=== PATIENT | male | born 1950 | race African-American/Black ===

== ENCOUNTER 2022-04-03 14:15 | Inpatient (IN) | payer MEDICARE ==
[2022-04-03 15:23] LABS: Bacteria/HPF 3+ HPF (None Seen); Bilirubin 1+ (Negative); Blood, Urine 1+ (Negative); Glucose, Urine (Dipstick) Normal (Negative); Ketone, Urine Trace mg/dL (Negative); Leukocyte 500 Leu/uL (Negative); Nitrite Negative (Negative); Protein, Urine (Dipstick) 70 mg/dL (Neg-Trace); RBC/HPF 0-3 HPF (0-3); Specific Gravity, Urine 1.022 (1.002-1.036); Squamous Epithelial 0-3 HPF (0-3); WBC/HPF Greater than 50 HPF (0-3)
[2022-04-03 15:24] LABS: Clarity Turbid (Clear)
[2022-04-03 15:29] LABS: #Lymphocytes 1.4 thou/uL (1.20-3.40); #Monocytes 0.6 thou/uL (0.11-0.59); #Neutrophils 6.8 thou/uL (1.40-6.50); %Basophils 0.5 % (0.0-1.0); %Eosinophils 0.4 % (0.0-10.0); %Lymphocytes 15.7 % (21.0-51.0); %Monocytes 6.3 % (0.0-10.0); %Neutrophils 77.1 % (42.0-75.0); Hemoglobin 15.8 g/dL (14.0-18.0); Mean Corpuscular HGB CONC 30.9 g/dL (32.0-36.0); Mean Corpuscular Hemoglobin 34.3 pg (27.0-31.0); Mean Platelet Volume 12.5 fL (7.4-10.4); Platelet Count 101 thou/uL (130-400); RBC Distribution Width 12.8 % (11.5-14.5); Red Blood Cell (RBC) Count 4.61 mill/uL (4.70-6.10); White Blood Cell (WBC) Count 8.8 thou/uL (4.8-10.8)
[2022-04-03 15:34] LABS: INR-International Normal Ratio 1.8; Prothrombin Time 20.9 sec (12.0-14.7)
[2022-04-03 15:38] LABS: Hypochromia SLIGHT = 6-15 cells (100X) (0-5/hpf); Large Platelets SLIGHT; MDiff Complete? YES; Macrocytosis MODERATE=16-30 cells (100X) (0-5/hpf); Platelet Morphology Comment Appears Decreased; Polychromasia SLIGHT = 2-3 cells (100X) (0-2/hpf)
[2022-04-03] MEDS ORDERED: Aspirin 325 MG TAB ONE (15:39)
[2022-04-03] MEDS ORDERED: cefTRIAXone\\ROCEPHIN 1 GM VIAL ONE (15:39)
[2022-04-03 15:55] LABS: CKMB 3.6 ng/mL (0-6.6)
[2022-04-03] MEDS ORDERED: Aspirin 300 MG Suppository ONE (15:55)
[2022-04-03] MEDS ORDERED: Acetaminophen 650 MG Suppository PR PRN (16:31)
[2022-04-03] MEDS ORDERED: Lactated Ringer's 1,000 ML IV SCH (17:00)
[2022-04-03] MEDS ORDERED: Vancomycin 1 GM/200 ML BAG ONE (17:01)
[2022-04-03 17:35] LABS: Amphetamine Not Detected (NotDetected); Barbiturates Screen Not Detected (NotDetected); Benzodiazepine Screen Not Detected (NotDetected); Cocaine Metabolite Screen Detected (NotDetected); Methadone Not Detected (NotDetected); Methamphetamine Not Detected (NotDetected); Opiate Screen Not Detected (NotDetected); Oxycodone Screen Not Detected (NotDetected); Phencyclidine (PCP) Not Detected (NotDetected); THC/Cannabinoid Screen Not Detected (NotDetected); Tricyclic Screen Not Detected (NotDetected)
[2022-04-03 17:44] LABS: ALT (SGPT) 7 U/L (8-55); AST (SGOT) 20 U/L (5-34); Albumin 3.7 g/dL (3.4-4.8); Alkaline Phosphatase 65 U/L (40-110); Anion Gap 26 mmol/L (10-20); BUN (Urea Nitrogen) 123 mg/dL (8.4-25.7); Bilirubin, Total 0.7 mg/dL (0.2-1.2); Calc. Creatinine Clearance 0 mL/min (70-130); Calcium 8.6 mg/dL (7.8-10.44); Carbon Dioxide 13 mmol/L (23-31); Chloride 137 mmol/L (98-107); Estimated GFR 5; Globulin 3.6 g/dL (2.4-3.5); Glucose 88 mg/dL (80-115); Protein, Total 7.3 g/dL (5.8-8.1); Sodium 170 mmol/L (136-145)
[2022-04-03 18:11] LABS: Lactic Acid 2.1 mmol/L (0.5-2.2)
[2022-04-03 18:19] LABS: SARS-CoV-2 NAA Rapid Test Not Detected (NotDetected)
[2022-04-03 18:57] LABS: Anion Gap 27 mmol/L (10-20); BUN (Urea Nitrogen) 123 mg/dL (8.4-25.7); Calc. Creatinine Clearance 0 mL/min (70-130); Calcium 8.4 mg/dL (7.8-10.44); Carbon Dioxide 12 mmol/L (23-31); Chloride 135 mmol/L (98-107); Estimated GFR 5; Glucose 109 mg/dL (80-115); Potassium 5.7 mmol/L (3.5-5.1); Sodium 168 mmol/L (136-145)
[2022-04-03] MEDS: Heparin 5,000 UNITS/ML VIAL SC SCH (22:29)
[2022-04-03] MEDS: Famotidine/PF 20 mg/2ml Vial SLOW IVP SCH (22:29)
[2022-04-03] MEDS ORDERED: HOLD VANCOMYCIN FOR LEVEL >20 FS SCH (22:30)
[2022-04-03 22:31] LABS: Troponin I 0.469 ng/mL (< 0.028)
[2022-04-03 22:36] LABS: Potassium 5.6 mmol/L (3.5-5.1)
[2022-04-03 22:37] LABS: Calcium 8.4 mg/dL (7.8-10.44); Glucose 166 mg/dL (80-115)
[2022-04-03 22:39] LABS: Anion Gap 26 mmol/L (10-20); Carbon Dioxide 12 mmol/L (23-31)
[2022-04-03 22:40] LABS: Chloride 136 mmol/L (98-107); Sodium 168 mmol/L (136-145)
[2022-04-03 22:41] LABS: Calc. Creatinine Clearance 5 mL/min (70-130); Estimated GFR 4
[2022-04-03 22:42] LABS: BUN (Urea Nitrogen) 125 mg/dL (8.4-25.7)
[2022-04-03] MEDS ORDERED: Cefepime 2 GM in Sodium Chloride 0.9% 100 ML IVPB SCH (23:30)
[2022-04-04 04:06] LABS: #Lymphocytes 1.5 thou/uL (1.20-3.40); #Monocytes 0.6 thou/uL (0.11-0.59); #Neutrophils 10.2 thou/uL (1.40-6.50); %Basophils 0.3 % (0.0-1.0); %Eosinophils 0.4 % (0.0-10.0); %Lymphocytes 12.3 % (21.0-51.0); %Monocytes 5.1 % (0.0-10.0); Hemoglobin 13.9 g/dL (14.0-18.0); Mean Corpuscular HGB CONC 30.9 g/dL (32.0-36.0); Mean Corpuscular Hemoglobin 35.1 pg (27.0-31.0); Mean Platelet Volume 11.1 fL (7.4-10.4); Platelet Count 72 thou/uL (130-400); RBC Distribution Width 12.6 % (11.5-14.5); Red Blood Cell (RBC) Count 3.95 mill/uL (4.70-6.10); White Blood Cell (WBC) Count 12.5 thou/uL (4.8-10.8)
[2022-04-04 04:34] LABS: ALT (SGPT) 8 U/L (8-55); AST (SGOT) 25 U/L (5-34); Albumin 3.5 g/dL (3.4-4.8); Alkaline Phosphatase 58 U/L (40-110); Anion Gap 23 mmol/L (10-20); BUN (Urea Nitrogen) 118 mg/dL (8.4-25.7); Bilirubin, Total 0.7 mg/dL (0.2-1.2); Calc. Creatinine Clearance 5 mL/min (70-130); Calcium 8.5 mg/dL (7.8-10.44); Carbon Dioxide 12 mmol/L (23-31); Chloride 134 mmol/L (98-107); Estimated GFR 5; Globulin 3.3 g/dL (2.4-3.5); Glucose 171 mg/dL (80-115); Potassium 4.4 mmol/L (3.5-5.1); Protein, Total 6.8 g/dL (5.8-8.1); Sodium 165 mmol/L (136-145)
[2022-04-04] MEDS: Dextrose 5% in Water 1,000 ML IV SCH ×4 (06:23→09:00)
[2022-04-04 07:31] LABS: Vancomycin, Random 9.2 ug/mL (See Comment)
[2022-04-04] MEDS ORDERED: Vancomycin HCl 750 MG in Sodium Chloride 0.9% 250 ML 250 ML IVPB SCH (08:00)
[2022-04-04] MEDS ORDERED: Enoxaparin Sodium 30 MG/0.3 ML SYRINGE SC SCH (09:00)
[2022-04-04] MEDS: Heparin 5,000 UNITS/ML VIAL SC SCH (09:08)
[2022-04-04] MEDS: Sodium Chloride 0.9% 1,000 ML IV SCH ×2 (09:39→21:08)
[2022-04-04 09:50] LABS: Anion Gap 22 mmol/L (10-20); BUN (Urea Nitrogen) 115 mg/dL (8.4-25.7); Calc. Creatinine Clearance 6 mL/min (70-130); Calcium 8.8 mg/dL (7.8-10.44); Carbon Dioxide 17 mmol/L (23-31); Chloride 132 mmol/L (98-107); Estimated GFR 5; Glucose 155 mg/dL (80-115); Potassium 5.1 mmol/L (3.5-5.1); Sodium 166 mmol/L (136-145)
[2022-04-04 11:50] LABS: Magnesium 2.7 mg/dL (1.6-2.6)
[2022-04-04] MEDS ORDERED: Heparin 10,000 UNITS/ 10 ML VIAL SLOW IVP SCH (13:30)
[2022-04-04 14:14] LABS: Hemoglobin 13.4 g/dL (14.0-18.0); Platelet Count 65 thou/uL (130-400)
[2022-04-04 15:30] LABS: Anion Gap 24 mmol/L (10-20); BUN (Urea Nitrogen) 111 mg/dL (8.4-25.7); Calc. Creatinine Clearance 6 mL/min (70-130); Calcium 8.7 mg/dL (7.8-10.44); Carbon Dioxide 13 mmol/L (23-31); Chloride 132 mmol/L (98-107); Estimated GFR 5; Glucose 108 mg/dL (80-115); Potassium 4.5 mmol/L (3.5-5.1); Sodium 164 mmol/L (136-145)
[2022-04-04] MEDS ORDERED: cefTRIAXone\\ROCEPHIN 1 GM in Sodium Chloride 0.9% 100 ML IVPB SCH (15:30)
[2022-04-04] MEDS: Heparin 25,000 units/D5W 500 ML IVPB SCH (15:42)
[2022-04-04] MEDS ORDERED: Vancomycin Hemodialysis Sliding Scale FS SCH (17:00)
[2022-04-04] MEDS: Famotidine/PF 20 mg/2ml Vial SLOW IVP SCH (21:07)
[2022-04-04 22:02] LABS: Anion Gap 23 mmol/L (10-20); BUN (Urea Nitrogen) 107 mg/dL (8.4-25.7); Calc. Creatinine Clearance 6 mL/min (70-130); Calcium 8.4 mg/dL (7.8-10.44); Carbon Dioxide 16 mmol/L (23-31); Chloride 134 mmol/L (98-107); Estimated GFR 5; Glucose 93 mg/dL (80-115); Potassium 4.7 mmol/L (3.5-5.1); Sodium 168 mmol/L (136-145)
[2022-04-04 22:13] LABS: PTT Greater than 250.0 sec (22.9-36.1)
[2022-04-04] MEDS: Sodium Chloride 0.45% 1,000 ML IV SCH (23:08)
[2022-04-05 01:18] LABS: PTT 144.2 sec (22.9-36.1)
[2022-04-05 04:10] LABS: #Eosinphils 0.1 thou/uL (0.0-0.7); #Lymphocytes 1.3 thou/uL (1.20-3.40); #Monocytes 0.3 thou/uL (0.11-0.59); #Neutrophils 6.6 thou/uL (1.40-6.50); %Basophils 0.4 % (0.0-1.0); %Eosinophils 1.6 % (0.0-10.0); %Lymphocytes 15.1 % (21.0-51.0); %Monocytes 3.8 % (0.0-10.0); %Neutrophils 79.1 % (42.0-75.0); Hemoglobin 11.6 g/dL (14.0-18.0); Mean Corpuscular HGB CONC 31.3 g/dL (32.0-36.0); Mean Platelet Volume 12.2 fL (7.4-10.4); Platelet Count 63 thou/uL (130-400); RBC Distribution Width 12.5 % (11.5-14.5); White Blood Cell (WBC) Count 8.3 thou/uL (4.8-10.8)
[2022-04-05 04:33] LABS: ALT (SGPT) 12 U/L (8-55); AST (SGOT) 36 U/L (5-34); Albumin 3.2 g/dL (3.4-4.8); Alkaline Phosphatase 51 U/L (40-110); Anion Gap 20 mmol/L (10-20); BUN (Urea Nitrogen) 104 mg/dL (8.4-25.7); Bilirubin, Total 0.6 mg/dL (0.2-1.2); Calc. Creatinine Clearance 6 mL/min (70-130); Calcium 8.7 mg/dL (7.8-10.44); Carbon Dioxide 15 mmol/L (23-31); Chloride 135 mmol/L (98-107); Estimated GFR 6; Glucose 80 mg/dL (80-115); Potassium 4.6 mmol/L (3.5-5.1); Protein, Total 6.2 g/dL (5.8-8.1); Sodium 165 mmol/L (136-145)
[2022-04-05 06:50] LABS: Vancomycin, Random 15.7 ug/mL (See Comment)
[2022-04-05] MEDS ORDERED: Vancomycin HCl 500 MG in Sodium Chloride 0.9% 100 ML IVPB SCH (07:15)
[2022-04-05] MEDS ORDERED: Vancomycin HCl 750 MG in Sodium Chloride 0.9% 250 ML 250 ML IVPB SCH (08:00)
[2022-04-05] MEDS: Sodium Chloride 0.45% 1,000 ML IV SCH ×3 (08:16→20:24)
[2022-04-05] MEDS ORDERED: WATER IVPB SCH (12:00)
[2022-04-05] MEDS ORDERED: VANCOMYCIN HCL IVPB SCH (12:00)
[2022-04-05] MEDS ORDERED: DEXTROSE 5% IVPB SCH (12:00)
[2022-04-05] MEDS: cefTRIAXone\\ROCEPHIN 2 GM in Sodium Chloride 0.9% 100 ML IVPB SCH (16:27)
[2022-04-05] MEDS: Famotidine/PF 20 mg/2ml Vial SLOW IVP SCH (20:23)
[2022-04-06] MEDS: Sodium Chloride 0.45% 1,000 ML IV SCH (06:11)
[2022-04-06 07:45] LABS: #Eosinphils 0.2 thou/uL (0.0-0.7); #Lymphocytes 0.9 thou/uL (1.20-3.40); #Monocytes 0.3 thou/uL (0.11-0.59); #Neutrophils 3.7 thou/uL (1.40-6.50); %Basophils 0.5 % (0.0-1.0); %Eosinophils 3.1 % (0.0-10.0); %Lymphocytes 17.9 % (21.0-51.0); %Monocytes 6.1 % (0.0-10.0); %Neutrophils 72.4 % (42.0-75.0); Hemoglobin 11.8 g/dL (14.0-18.0); Mean Corpuscular HGB CONC 30.8 g/dL (32.0-36.0); Mean Corpuscular Hemoglobin 34.1 pg (27.0-31.0); Mean Platelet Volume 11.7 fL (7.4-10.4); Platelet Count 74 thou/uL (130-400); RBC Distribution Width 12.5 % (11.5-14.5); Red Blood Cell (RBC) Count 3.47 mill/uL (4.70-6.10); White Blood Cell (WBC) Count 5.1 thou/uL (4.8-10.8)
[2022-04-06 08:06] LABS: ALT (SGPT) 15 U/L (8-55); AST (SGOT) 41 U/L (5-34); Alkaline Phosphatase 56 U/L (40-110); Anion Gap 17 mmol/L (10-20); BUN (Urea Nitrogen) 84 mg/dL (8.4-25.7); Bilirubin, Total 0.5 mg/dL (0.2-1.2); Calc. Creatinine Clearance 9 mL/min (70-130); Calcium 8.4 mg/dL (7.8-10.44); Carbon Dioxide 14 mmol/L (23-31); Estimated GFR 8; Globulin 2.8 g/dL (2.4-3.5); Glucose 85 mg/dL (80-115); Magnesium 2.1 mg/dL (1.6-2.6); Phosphorus 4.6 mg/dL (2.3-4.7); Protein, Total 5.8 g/dL (5.8-8.1); Sodium 159 mmol/L (136-145)
[2022-04-06 08:19] LABS: Chloride 133 mmol/L (98-107)
[2022-04-06] MEDS ORDERED: Multivitamins, Adult 10 ML, Folic Acid 1 MG, Thiamine HCl 100 MG in Dextrose 5 %-0.45 %... IV SCH (11:30)
[2022-04-06] MEDS: cefTRIAXone\\ROCEPHIN 2 GM in Sodium Chloride 0.9% 100 ML IVPB SCH (16:19)
[2022-04-06] MEDS: Dextrose 5% in Water 1,000 ML IV SCH (16:23)
[2022-04-06] MEDS: Senokot S 8.6-50 MG TAB PO SCH (20:41)
[2022-04-06] MEDS: Heparin 25,000 units/D5W 500 ML IVPB SCH (20:41)
[2022-04-06] MEDS: Famotidine/PF 20 mg/2ml Vial SLOW IVP SCH (20:41)
[2022-04-06] MEDS: Cyanocobalamin (Vitamin B-12) 1,000 MCG TAB PO SCH (20:41)
[2022-04-06] MEDS: pyridOXINE 50 MG (B6) TAB PO SCH (20:44)
[2022-04-06] MEDS ORDERED: Senokot S 8.6-50 MG TAB PO SCH (21:00)
[2022-04-07 04:48] LABS: #Eosinphils 0.1 thou/uL (0.0-0.7); #Lymphocytes 1.1 thou/uL (1.20-3.40); #Monocytes 0.4 thou/uL (0.11-0.59); %Basophils 0.2 % (0.0-1.0); %Eosinophils 2.5 % (0.0-10.0); %Monocytes 7.9 % (0.0-10.0); %Neutrophils 65.4 % (42.0-75.0); Hemoglobin 10.7 g/dL (14.0-18.0); Mean Corpuscular Hemoglobin 35.2 pg (27.0-31.0); Mean Platelet Volume 11.9 fL (7.4-10.4); Platelet Count 76 thou/uL (130-400); RBC Distribution Width 12.6 % (11.5-14.5); Red Blood Cell (RBC) Count 3.03 mill/uL (4.70-6.10); White Blood Cell (WBC) Count 4.6 thou/uL (4.8-10.8)
[2022-04-07 05:13] LABS: ALT (SGPT) 13 U/L (8-55); AST (SGOT) 30 U/L (5-34); Albumin 2.9 g/dL (3.4-4.8); Alkaline Phosphatase 54 U/L (40-110); Anion Gap 12 mmol/L (10-20); BUN (Urea Nitrogen) 68 mg/dL (8.4-25.7); Bilirubin, Total 0.4 mg/dL (0.2-1.2); Calc. Creatinine Clearance 11 mL/min (70-130); Calcium 8.2 mg/dL (7.8-10.44); Carbon Dioxide 17 mmol/L (23-31); Estimated GFR 10; Globulin 2.7 g/dL (2.4-3.5); Glucose 118 mg/dL (80-115); Potassium 4.1 mmol/L (3.5-5.1); Protein, Total 5.6 g/dL (5.8-8.1); Sodium 153 mmol/L (136-145)
[2022-04-07 05:18] LABS: Chloride 128 mmol/L (98-107)
[2022-04-07] MEDS: Multivit, Therapeutic 1 TAB PO SCH (08:54)
[2022-04-07] MEDS: Folic Acid 1 MG TAB PO SCH (08:54)
[2022-04-07] MEDS: Thiamine 100 MG TAB PO SCH (08:54)
[2022-04-07] MEDS: cefTRIAXone\\ROCEPHIN 2 GM in Sodium Chloride 0.9% 100 ML IVPB SCH (15:02)
[2022-04-07] MEDS: Dextrose 5% in Water 1,000 ML IV SCH (15:03)
[2022-04-07] MEDS: Saccharomyces boulardii 250 MG CAP PO SCH (20:12)
[2022-04-07] MEDS: Cyanocobalamin (Vitamin B-12) 1,000 MCG TAB PO SCH (20:12)
[2022-04-07] MEDS: pyridOXINE 50 MG (B6) TAB PO SCH (20:12)
[2022-04-07] MEDS: Senokot S 8.6-50 MG TAB PO SCH (20:13)
[2022-04-07] MEDS: Famotidine/PF 20 mg/2ml Vial SLOW IVP SCH (20:13)
[2022-04-08 04:13] LABS: #Eosinphils 0.1 thou/uL (0.0-0.7); #Lymphocytes 1.3 thou/uL (1.20-3.40); #Monocytes 0.4 thou/uL (0.11-0.59); #Neutrophils 2.6 thou/uL (1.40-6.50); %Basophils 0.5 % (0.0-1.0); %Eosinophils 2.7 % (0.0-10.0); %Lymphocytes 29.7 % (21.0-51.0); %Monocytes 8.5 % (0.0-10.0); %Neutrophils 58.6 % (42.0-75.0); Hemoglobin 10.9 g/dL (14.0-18.0); Mean Corpuscular HGB CONC 32.5 g/dL (32.0-36.0); Mean Corpuscular Hemoglobin 35.9 pg (27.0-31.0); Mean Platelet Volume 12.5 fL (7.4-10.4); Platelet Count 85 thou/uL (130-400); RBC Distribution Width 12.5 % (11.5-14.5); Red Blood Cell (RBC) Count 3.04 mill/uL (4.70-6.10); White Blood Cell (WBC) Count 4.4 thou/uL (4.8-10.8)
[2022-04-08 04:32] LABS: ALT (SGPT) 16 U/L (8-55); AST (SGOT) 30 U/L (5-34); Albumin 2.8 g/dL (3.4-4.8); Alkaline Phosphatase 56 U/L (40-110); Anion Gap 11 mmol/L (10-20); BUN (Urea Nitrogen) 52 mg/dL (8.4-25.7); Bilirubin, Total 0.3 mg/dL (0.2-1.2); Calc. Creatinine Clearance 14 mL/min (70-130); Calcium 8.5 mg/dL (7.8-10.44); Carbon Dioxide 19 mmol/L (23-31); Chloride 124 mmol/L (98-107); Estimated GFR 14; Globulin 2.9 g/dL (2.4-3.5); Glucose 110 mg/dL (80-115); Potassium 3.9 mmol/L (3.5-5.1); Protein, Total 5.7 g/dL (5.8-8.1); Sodium 150 mmol/L (136-145)
[2022-04-08] MEDS: Multivit, Therapeutic 1 TAB PO SCH (08:10)
[2022-04-08] MEDS: Thiamine 100 MG TAB PO SCH (08:10)
[2022-04-08] MEDS: Folic Acid 1 MG TAB PO SCH (08:10)
[2022-04-08] MEDS: Dextrose 5% in Water 1,000 ML IV SCH ×2 (08:11→10:03)
[2022-04-08] MEDS ORDERED: APIXABAN IVPB PRN (13:47)
[2022-04-08] MEDS ORDERED: [UNRECOGNIZED DRUG - OTHER] IVPB PRN (13:47)
[2022-04-08] MEDS ORDERED: Apixaban 5 MG TAB PO SCH (16:00)
[2022-04-08] MEDS: cefTRIAXone\\ROCEPHIN 2 GM in Sodium Chloride 0.9% 100 ML IVPB SCH (16:04)
[2022-04-08] MEDS: Senokot S 8.6-50 MG TAB PO SCH (20:31)
[2022-04-08] MEDS: pyridOXINE 50 MG (B6) TAB PO SCH (20:31)
[2022-04-08] MEDS: Cyanocobalamin (Vitamin B-12) 1,000 MCG TAB PO SCH (20:31)
[2022-04-08] MEDS: Famotidine/PF 20 mg/2ml Vial SLOW IVP SCH (20:31)
[2022-04-08] MEDS: Saccharomyces boulardii 250 MG CAP PO SCH (20:31)
[2022-04-09 03:50] LABS: #Eosinphils 0.1 thou/uL (0.0-0.7); #Lymphocytes 1.3 thou/uL (1.20-3.40); #Monocytes 0.6 thou/uL (0.11-0.59); #Neutrophils 2.6 thou/uL (1.40-6.50); %Basophils 0.2 % (0.0-1.0); %Eosinophils 2.7 % (0.0-10.0); %Lymphocytes 27.6 % (21.0-51.0); %Monocytes 13.4 % (0.0-10.0); %Neutrophils 56.1 % (42.0-75.0); Hemoglobin 11.2 g/dL (14.0-18.0); Mean Corpuscular HGB CONC 31.8 g/dL (32.0-36.0); Mean Corpuscular Hemoglobin 34.7 pg (27.0-31.0); Mean Platelet Volume 10.9 fL (7.4-10.4); Platelet Count 99 thou/uL (130-400); RBC Distribution Width 12.5 % (11.5-14.5); Red Blood Cell (RBC) Count 3.22 mill/uL (4.70-6.10); White Blood Cell (WBC) Count 4.7 thou/uL (4.8-10.8)
[2022-04-09 04:12] LABS: ALT (SGPT) 17 U/L (8-55); AST (SGOT) 33 U/L (5-34); Albumin 2.9 g/dL (3.4-4.8); Alkaline Phosphatase 60 U/L (40-110); Anion Gap 14 mmol/L (10-20); BUN (Urea Nitrogen) 38 mg/dL (8.4-25.7); Bilirubin, Total 0.5 mg/dL (0.2-1.2); Calc. Creatinine Clearance 19 mL/min (70-130); Calcium 8.2 mg/dL (7.8-10.44); Carbon Dioxide 17 mmol/L (23-31); Chloride 117 mmol/L (98-107); Estimated GFR 20; Globulin 2.9 g/dL (2.4-3.5); Glucose 86 mg/dL (80-115); Potassium 3.3 mmol/L (3.5-5.1); Protein, Total 5.8 g/dL (5.8-8.1); Sodium 145 mmol/L (136-145)
[2022-04-09] MEDS: Apixaban 5 MG TAB PO SCH ×2 (05:33→17:26)
[2022-04-09] MEDS: Multivit, Therapeutic 1 TAB PO SCH (08:19)
[2022-04-09] MEDS: Thiamine 100 MG TAB PO SCH (08:19)
[2022-04-09] MEDS: Dextrose 5% in Water 1,000 ML IV SCH (08:19)
[2022-04-09] MEDS: Folic Acid 1 MG TAB PO SCH (08:19)
[2022-04-09] MEDS: Dextrose 5 %-0.45 % NaCl 1,000 ML IV SCH (13:25)
[2022-04-09] MEDS ORDERED: Potassium Chloride 20 MEQ TAB PO SCH (16:30)
[2022-04-09] MEDS: Famotidine/PF 20 mg/2ml Vial SLOW IVP SCH (22:06)
[2022-04-09] MEDS: pyridOXINE 50 MG (B6) TAB PO SCH (22:06)
[2022-04-09] MEDS: Saccharomyces boulardii 250 MG CAP PO SCH (22:07)
[2022-04-09] MEDS: Cyanocobalamin (Vitamin B-12) 1,000 MCG TAB PO SCH (22:07)
[2022-04-10] MEDS: Cyanocobalamin (Vitamin B-12) 1,000 MCG TAB PO SCH ×2 (00:08→20:32)
[2022-04-10] MEDS: Senokot S 8.6-50 MG TAB PO SCH ×2 (00:08→20:32)
[2022-04-10] MEDS: Saccharomyces boulardii 250 MG CAP PO SCH ×2 (00:09→20:33)
[2022-04-10] MEDS: pyridOXINE 50 MG (B6) TAB PO SCH ×2 (00:09→20:33)
[2022-04-10 03:55] LABS: #Eosinphils 0.1 thou/uL (0.0-0.7); #Lymphocytes 1.3 thou/uL (1.20-3.40); #Monocytes 0.7 thou/uL (0.11-0.59); #Neutrophils 3.6 thou/uL (1.40-6.50); %Basophils 0.4 % (0.0-1.0); %Eosinophils 2.3 % (0.0-10.0); %Lymphocytes 22.5 % (21.0-51.0); %Monocytes 12.4 % (0.0-10.0); %Neutrophils 62.4 % (42.0-75.0); Hemoglobin 11.3 g/dL (14.0-18.0); Mean Corpuscular HGB CONC 35.1 g/dL (32.0-36.0); Mean Corpuscular Hemoglobin 37.9 pg (27.0-31.0); Mean Platelet Volume 11.5 fL (7.4-10.4); Platelet Count 97 thou/uL (130-400); RBC Distribution Width 12.5 % (11.5-14.5); Red Blood Cell (RBC) Count 2.98 mill/uL (4.70-6.10); White Blood Cell (WBC) Count 5.8 thou/uL (4.8-10.8)
[2022-04-10 04:19] LABS: ALT (SGPT) 32 U/L (8-55); AST (SGOT) 49 U/L (5-34); Albumin 2.8 g/dL (3.4-4.8); Alkaline Phosphatase 88 U/L (40-110); Anion Gap 13 mmol/L (10-20); BUN (Urea Nitrogen) 31 mg/dL (8.4-25.7); Bilirubin, Total 0.5 mg/dL (0.2-1.2); Calc. Creatinine Clearance 23 mL/min (70-130); Calcium 8.3 mg/dL (7.8-10.44); Carbon Dioxide 19 mmol/L (23-31); Chloride 115 mmol/L (98-107); Estimated GFR 25; Globulin 3.2 g/dL (2.4-3.5); Glucose 95 mg/dL (80-115); Potassium 3.9 mmol/L (3.5-5.1); Sodium 143 mmol/L (136-145)
[2022-04-10] MEDS: Dextrose 5 %-0.45 % NaCl 1,000 ML IV SCH ×2 (05:45→19:13)
[2022-04-10] MEDS: Apixaban 5 MG TAB PO SCH ×2 (05:45→17:54)
[2022-04-10] MEDS: Thiamine 100 MG TAB PO SCH (08:41)
[2022-04-10] MEDS: Multivit, Therapeutic 1 TAB PO SCH (08:41)
[2022-04-10] MEDS: Folic Acid 1 MG TAB PO SCH (08:41)
[2022-04-10 11:12] LABS: Hemoglobin 11.4 g/dL (14.0-18.0); Platelet Count 124 thou/uL (130-400)
[2022-04-10] MEDS: Famotidine 20 MG TAB PO SCH (20:33)
[2022-04-11] MEDS: Apixaban 5 MG TAB PO SCH ×2 (05:14→17:32)
[2022-04-11 06:55] LABS: #Eosinphils 0.1 thou/uL (0.0-0.7); #Lymphocytes 1.3 thou/uL (1.20-3.40); #Monocytes 0.6 thou/uL (0.11-0.59); #Neutrophils 2.5 thou/uL (1.40-6.50); %Basophils 0.3 % (0.0-1.0); %Eosinophils 1.9 % (0.0-10.0); %Lymphocytes 29.1 % (21.0-51.0); %Monocytes 12.6 % (0.0-10.0); %Neutrophils 56.1 % (42.0-75.0); Hemoglobin 11.1 g/dL (14.0-18.0); Mean Corpuscular HGB CONC 32.4 g/dL (32.0-36.0); Mean Corpuscular Hemoglobin 35.1 pg (27.0-31.0); Mean Platelet Volume 10.1 fL (7.4-10.4); Platelet Count 137 thou/uL (130-400); RBC Distribution Width 12.6 % (11.5-14.5); Red Blood Cell (RBC) Count 3.15 mill/uL (4.70-6.10); White Blood Cell (WBC) Count 4.5 thou/uL (4.8-10.8)
[2022-04-11 07:34] LABS: ALT (SGPT) 102 U/L (8-55); AST (SGOT) 159 U/L (5-34); Albumin 2.9 g/dL (3.4-4.8); Alkaline Phosphatase 176 U/L (40-110); Anion Gap 14 mmol/L (10-20); BUN (Urea Nitrogen) 22 mg/dL (8.4-25.7); Bilirubin, Total 2.7 mg/dL (0.2-1.2); Calc. Creatinine Clearance 29 mL/min (70-130); Calcium 8.7 mg/dL (7.8-10.44); Carbon Dioxide 18 mmol/L (23-31); Chloride 114 mmol/L (98-107); Estimated GFR 31; Globulin 2.9 g/dL (2.4-3.5); Glucose 93 mg/dL (80-115); Potassium 3.8 mmol/L (3.5-5.1); Protein, Total 5.8 g/dL (5.8-8.1); Sodium 142 mmol/L (136-145)
[2022-04-11] MEDS: Multivit, Therapeutic 1 TAB PO SCH (09:38)
[2022-04-11] MEDS: Thiamine 100 MG TAB PO SCH (09:38)
[2022-04-11] MEDS: Folic Acid 1 MG TAB PO SCH (09:38)
[2022-04-11] MEDS: Dextrose 5 %-0.45 % NaCl 1,000 ML IV SCH ×2 (14:44→20:33)
[2022-04-11] MEDS ORDERED: Morphine 2 MG/ML VIAL SLOW IVP PRN (16:00)
[2022-04-11] MEDS ORDERED: Haloperidol Lactate 5 MG/ML VIAL IM SCH (16:15)
[2022-04-11] MEDS ORDERED: Haloperidol Lactate 5 MG/ML VIAL SLOW IVP SCH (16:30)
[2022-04-11] MEDS: Famotidine 20 MG TAB PO SCH (20:25)
[2022-04-11] MEDS: Senokot S 8.6-50 MG TAB PO SCH (20:26)
[2022-04-11] MEDS: Saccharomyces boulardii 250 MG CAP PO SCH (20:26)
[2022-04-11] MEDS: Cyanocobalamin (Vitamin B-12) 1,000 MCG TAB PO SCH (20:26)
[2022-04-11] MEDS: pyridOXINE 50 MG (B6) TAB PO SCH (20:26)
[2022-04-12 05:43] LABS: #Eosinphils 0.1 thou/uL (0.0-0.7); #Lymphocytes 1.5 thou/uL (1.20-3.40); #Monocytes 1.1 thou/uL (0.11-0.59); #Neutrophils 4.9 thou/uL (1.40-6.50); %Basophils 0.3 % (0.0-1.0); %Eosinophils 0.9 % (0.0-10.0); %Lymphocytes 19.5 % (21.0-51.0); %Monocytes 14.8 % (0.0-10.0); %Neutrophils 64.5 % (42.0-75.0); Hemoglobin 10.6 g/dL (14.0-18.0); Mean Corpuscular HGB CONC 32.4 g/dL (32.0-36.0); Mean Corpuscular Hemoglobin 34.4 pg (27.0-31.0); Mean Platelet Volume 9.3 fL (7.4-10.4); Platelet Count 178 thou/uL (130-400); RBC Distribution Width 12.6 % (11.5-14.5); Red Blood Cell (RBC) Count 3.07 mill/uL (4.70-6.10); White Blood Cell (WBC) Count 7.6 thou/uL (4.8-10.8)
[2022-04-12] MEDS: Apixaban 5 MG TAB PO SCH ×2 (05:51→18:16)
[2022-04-12 06:04] LABS: ALT (SGPT) 74 U/L (8-55); AST (SGOT) 64 U/L (5-34); Albumin 2.9 g/dL (3.4-4.8); Alkaline Phosphatase 155 U/L (40-110); Anion Gap 15 mmol/L (10-20); BUN (Urea Nitrogen) 18 mg/dL (8.4-25.7); Bilirubin, Total 1.2 mg/dL (0.2-1.2); Calc. Creatinine Clearance 29 mL/min (70-130); Calcium 8.5 mg/dL (7.8-10.44); Carbon Dioxide 17 mmol/L (23-31); Chloride 113 mmol/L (98-107); Estimated GFR 33; Globulin 3.2 g/dL (2.4-3.5); Glucose 99 mg/dL (80-115); Potassium 3.7 mmol/L (3.5-5.1); Protein, Total 6.1 g/dL (5.8-8.1); Sodium 141 mmol/L (136-145)
[2022-04-12] MEDS: Thiamine 100 MG TAB PO SCH (09:03)
[2022-04-12] MEDS: Folic Acid 1 MG TAB PO SCH (09:03)
[2022-04-12] MEDS: Multivit, Therapeutic 1 TAB PO SCH (09:03)
[2022-04-12] MEDS ORDERED: OLANZapine 2.5 MG TAB PO SCH (11:00)
[2022-04-12 11:11] LABS: Hemoglobin 10.2 g/dL (14.0-18.0); Platelet Count 193 thou/uL (130-400)
[2022-04-12] MEDS: Dextrose 5 %-0.45 % NaCl 1,000 ML IV SCH (17:47)
[2022-04-12] MEDS ORDERED: Sodium Bicarbonate 150 MEQ in Dextrose 5% in Water 1,000 ML IV SCH (18:30)
[2022-04-12] MEDS: Saccharomyces boulardii 250 MG CAP PO SCH (21:35)
[2022-04-12] MEDS: Cyanocobalamin (Vitamin B-12) 1,000 MCG TAB PO SCH (21:35)
[2022-04-12] MEDS: Senokot S 8.6-50 MG TAB PO SCH (21:35)
[2022-04-12] MEDS: Famotidine 20 MG TAB PO SCH (21:35)
[2022-04-12] MEDS: pyridOXINE 50 MG (B6) TAB PO SCH (21:35)
[2022-04-13] MEDS: Apixaban 5 MG TAB PO SCH ×2 (05:34→17:57)
[2022-04-13] MEDS ORDERED: OLANZapine 5 MG TAB PO SCH (09:00)
[2022-04-13] MEDS: Folic Acid 1 MG TAB PO SCH (09:27)
[2022-04-13] MEDS: Thiamine 100 MG TAB PO SCH (09:27)
[2022-04-13] MEDS: Multivit, Therapeutic 1 TAB PO SCH (09:27)
[2022-04-13 17:15] LABS: #Lymphocytes 1.3 thou/uL (1.20-3.40); #Neutrophils 8.2 thou/uL (1.40-6.50); %Basophils 0.2 % (0.0-1.0); %Eosinophils 0.2 % (0.0-10.0); %Lymphocytes 12.7 % (21.0-51.0); %Monocytes 9.8 % (0.0-10.0); %Neutrophils 77.2 % (42.0-75.0); Hemoglobin 11.4 g/dL (14.0-18.0); Mean Corpuscular HGB CONC 33.7 g/dL (32.0-36.0); Mean Corpuscular Hemoglobin 35.8 pg (27.0-31.0); Mean Platelet Volume 8.7 fL (7.4-10.4); Platelet Count 230 thou/uL (130-400); RBC Distribution Width 12.7 % (11.5-14.5); Red Blood Cell (RBC) Count 3.18 mill/uL (4.70-6.10); White Blood Cell (WBC) Count 10.6 thou/uL (4.8-10.8)
[2022-04-13 17:35] LABS: ALT (SGPT) 44 U/L (8-55); AST (SGOT) 28 U/L (5-34); Albumin 2.9 g/dL (3.4-4.8); Alkaline Phosphatase 126 U/L (40-110); Anion Gap 14 mmol/L (10-20); BUN (Urea Nitrogen) 15 mg/dL (8.4-25.7); Bilirubin, Total 1.2 mg/dL (0.2-1.2); Calc. Creatinine Clearance 36 mL/min (70-130); Calcium 8.6 mg/dL (7.8-10.44); Carbon Dioxide 22 mmol/L (23-31); Chloride 107 mmol/L (98-107); Estimated GFR 41; Globulin 3.6 g/dL (2.4-3.5); Glucose 100 mg/dL (80-115); Potassium 3.4 mmol/L (3.5-5.1); Protein, Total 6.5 g/dL (5.8-8.1); Sodium 140 mmol/L (136-145)
[2022-04-13] MEDS: Cyanocobalamin (Vitamin B-12) 1,000 MCG TAB PO SCH (22:07)
[2022-04-13] MEDS: Famotidine 20 MG TAB PO SCH (22:07)
[2022-04-13] MEDS: pyridOXINE 50 MG (B6) TAB PO SCH (22:07)
[2022-04-13] MEDS: Saccharomyces boulardii 250 MG CAP PO SCH (22:07)
[2022-04-13] MEDS: Senokot S 8.6-50 MG TAB PO SCH (22:07)
[2022-04-14] MEDS: Acetaminophen 325 MG TAB PO PRN ×2 (04:41→21:40)
[2022-04-14] MEDS: Apixaban 5 MG TAB PO SCH ×2 (05:33→17:56)
[2022-04-14 06:04] LABS: #Lymphocytes 1.7 thou/uL (1.20-3.40); #Monocytes 0.8 thou/uL (0.11-0.59); #Neutrophils 5.7 thou/uL (1.40-6.50); %Basophils 0.1 % (0.0-1.0); %Eosinophils 0.4 % (0.0-10.0); %Lymphocytes 20.1 % (21.0-51.0); %Neutrophils 69.4 % (42.0-75.0); Hemoglobin 11.2 g/dL (14.0-18.0); Mean Corpuscular HGB CONC 34.3 g/dL (32.0-36.0); Mean Corpuscular Hemoglobin 36.5 pg (27.0-31.0); Platelet Count 237 thou/uL (130-400); RBC Distribution Width 12.6 % (11.5-14.5); Red Blood Cell (RBC) Count 3.06 mill/uL (4.70-6.10); White Blood Cell (WBC) Count 8.2 thou/uL (4.8-10.8)
[2022-04-14 06:34] LABS: ALT (SGPT) 35 U/L (8-55); AST (SGOT) 22 U/L (5-34); Albumin 2.7 g/dL (3.4-4.8); Alkaline Phosphatase 115 U/L (40-110); Anion Gap 15 mmol/L (10-20); BUN (Urea Nitrogen) 16 mg/dL (8.4-25.7); Bilirubin, Total 1.3 mg/dL (0.2-1.2); Calc. Creatinine Clearance 33 mL/min (70-130); Calcium 8.5 mg/dL (7.8-10.44); Carbon Dioxide 22 mmol/L (23-31); Chloride 108 mmol/L (98-107); Estimated GFR 38; Globulin 3.5 g/dL (2.4-3.5); Glucose 102 mg/dL (80-115); Potassium 3.4 mmol/L (3.5-5.1); Protein, Total 6.2 g/dL (5.8-8.1); Sodium 142 mmol/L (136-145)
[2022-04-14] MEDS ORDERED: Potassium Chloride 20 MEQ TAB PO SCH (07:15)
[2022-04-14] MEDS: Sodium Chloride 0.45% 1,000 ML IV SCH (08:43)
[2022-04-14] MEDS: OLANZapine 2.5 MG TAB PO SCH (08:44)
[2022-04-14] MEDS: Folic Acid 1 MG TAB PO SCH (08:44)
[2022-04-14] MEDS: Multivit, Therapeutic 1 TAB PO SCH (08:44)
[2022-04-14] MEDS: Thiamine 100 MG TAB PO SCH (08:44)
[2022-04-14 09:40] LABS: Hemoglobin 11.4 g/dL (14.0-18.0); Platelet Count 243 thou/uL (130-400)
[2022-04-14] MEDS: Senokot S 8.6-50 MG TAB PO SCH (21:39)
[2022-04-14] MEDS: pyridOXINE 50 MG (B6) TAB PO SCH (21:39)
[2022-04-14] MEDS: Saccharomyces boulardii 250 MG CAP PO SCH (21:39)
[2022-04-14] MEDS: Cyanocobalamin (Vitamin B-12) 1,000 MCG TAB PO SCH (21:40)
[2022-04-14] MEDS: Famotidine 20 MG TAB PO SCH (21:40)
[2022-04-15] MEDS ORDERED: Lorazepam 1 MG TAB PO SCH (01:30)
[2022-04-15] MEDS: Sodium Chloride 0.45% 1,000 ML IV SCH ×2 (01:33→11:24)
[2022-04-15] MEDS ORDERED: Sterile Water 10 ML VIAL FS PRN (04:00)
[2022-04-15] MEDS ORDERED: Ziprasidone 20 MG VIAL IM SCH (04:00)
[2022-04-15] MEDS: Apixaban 5 MG TAB PO SCH ×2 (06:01→18:05)
[2022-04-15] MEDS ORDERED: Ondansetron PF 4 MG/2 ML Vial IVP PRN (06:31)
[2022-04-15] MEDS: Folic Acid 1 MG TAB PO SCH (09:52)
[2022-04-15] MEDS: Thiamine 100 MG TAB PO SCH (09:52)
[2022-04-15] MEDS: Multivit, Therapeutic 1 TAB PO SCH (09:52)
[2022-04-15] MEDS: OLANZapine 2.5 MG TAB PO SCH (09:52)
[2022-04-15 10:08] LABS: Anion Gap 17 mmol/L (10-20); BUN (Urea Nitrogen) 20 mg/dL (8.4-25.7); Calc. Creatinine Clearance 31 mL/min (70-130); Calcium 8.6 mg/dL (7.8-10.44); Carbon Dioxide 23 mmol/L (23-31); Chloride 106 mmol/L (98-107); Estimated GFR 35; Glucose 109 mg/dL (80-115); Potassium 3.9 mmol/L (3.5-5.1); Sodium 142 mmol/L (136-145)
[2022-04-15] MEDS ORDERED: Acetaminophen 650 MG Suppository PR SCH (12:15)
[2022-04-15] MEDS ORDERED: Promethazine HCl 12.5 MG in Sodium Chloride 0.9% 50 ML IVPB PRN (12:26)
[2022-04-15 12:40] LABS: #Lymphocytes 0.5 thou/uL (1.20-3.40); #Monocytes 0.4 thou/uL (0.11-0.59); #Neutrophils 10.4 thou/uL (1.40-6.50); %Basophils 0.1 % (0.0-1.0); %Eosinophils 0.1 % (0.0-10.0); %Lymphocytes 4.5 % (21.0-51.0); %Monocytes 3.7 % (0.0-10.0); %Neutrophils 91.6 % (42.0-75.0); Mean Corpuscular HGB CONC 31.7 g/dL (32.0-36.0); Mean Corpuscular Hemoglobin 34.2 pg (27.0-31.0); Mean Platelet Volume 7.9 fL (7.4-10.4); Platelet Count 264 thou/uL (130-400); RBC Distribution Width 12.8 % (11.5-14.5); Red Blood Cell (RBC) Count 3.21 mill/uL (4.70-6.10); White Blood Cell (WBC) Count 11.3 thou/uL (4.8-10.8)
[2022-04-15] MEDS ORDERED: Ampicillin/Sulbactam 3 GM in Sodium Chloride 0.9% 100 ML IVPB SCH (12:45)
[2022-04-15 13:05] LABS: ALT (SGPT) 59 U/L (8-55); AST (SGOT) 89 U/L (5-34); Albumin 2.7 g/dL (3.4-4.8); Alkaline Phosphatase 212 U/L (40-110); Anion Gap 15 mmol/L (10-20); BUN (Urea Nitrogen) 21 mg/dL (8.4-25.7); Bilirubin, Total 3.4 mg/dL (0.2-1.2); Calc. Creatinine Clearance 31 mL/min (70-130); Calcium 8.7 mg/dL (7.8-10.44); Carbon Dioxide 23 mmol/L (23-31); Chloride 107 mmol/L (98-107); Estimated GFR 36; Globulin 3.7 g/dL (2.4-3.5); Glucose 111 mg/dL (80-115); Magnesium 1.5 mg/dL (1.6-2.6); Phosphorus 2.5 mg/dL (2.3-4.7); Potassium 4.1 mmol/L (3.5-5.1); Protein, Total 6.4 g/dL (5.8-8.1); Sodium 141 mmol/L (136-145)
[2022-04-15 13:08] LABS: Troponin I 0.046 ng/mL (< 0.028)
[2022-04-15] MEDS: Ampicillin/Sulbactam 3 GM in Sodium Chloride 0.9% 100 ML IVPB SCH (18:05)
[2022-04-15] MEDS: Famotidine 20 MG TAB PO SCH (21:04)
[2022-04-15] MEDS: pyridOXINE 50 MG (B6) TAB PO SCH (21:04)
[2022-04-15] MEDS: Acetaminophen 325 MG TAB PO PRN (21:04)
[2022-04-15] MEDS: Cyanocobalamin (Vitamin B-12) 1,000 MCG TAB PO SCH (21:04)
[2022-04-15] MEDS: Saccharomyces boulardii 250 MG CAP PO SCH (21:04)
[2022-04-15] MEDS: Senokot S 8.6-50 MG TAB PO SCH (21:05)
[2022-04-16] MEDS: Ampicillin/Sulbactam 3 GM in Sodium Chloride 0.9% 100 ML IVPB SCH ×5 (00:55→23:19)
[2022-04-16] MEDS: Sodium Chloride 0.45% 1,000 ML IV SCH ×2 (00:55→12:36)
[2022-04-16] MEDS: Apixaban 5 MG TAB PO SCH ×2 (06:17→17:53)
[2022-04-16 08:18] LABS: #Eosinphils 0.2 thou/uL (0.0-0.7); #Lymphocytes 1.3 thou/uL (1.20-3.40); #Monocytes 0.5 thou/uL (0.11-0.59); #Neutrophils 10.1 thou/uL (1.40-6.50); %Basophils 0.1 % (0.0-1.0); %Eosinophils 1.3 % (0.0-10.0); %Neutrophils 83.7 % (42.0-75.0); Hemoglobin 9.5 g/dL (14.0-18.0); Mean Corpuscular HGB CONC 31.8 g/dL (32.0-36.0); Mean Corpuscular Hemoglobin 34.8 pg (27.0-31.0); Mean Platelet Volume 7.9 fL (7.4-10.4); Platelet Count 265 thou/uL (130-400); RBC Distribution Width 12.7 % (11.5-14.5); Red Blood Cell (RBC) Count 2.74 mill/uL (4.70-6.10); White Blood Cell (WBC) Count 12.1 thou/uL (4.8-10.8)
[2022-04-16 08:38] LABS: Magnesium 1.6 mg/dL (1.6-2.6); Phosphorus 2.9 mg/dL (2.3-4.7)
[2022-04-16 08:57] LABS: ALT (SGPT) 63 U/L (8-55); AST (SGOT) 97 U/L (5-34); Albumin 2.4 g/dL (3.4-4.8); Alkaline Phosphatase 200 U/L (40-110); Anion Gap 15 mmol/L (10-20); BUN (Urea Nitrogen) 22 mg/dL (8.4-25.7); Calc. Creatinine Clearance 31 mL/min (70-130); Calcium 8.5 mg/dL (7.8-10.44); Carbon Dioxide 24 mmol/L (23-31); Chloride 109 mmol/L (98-107); Estimated GFR 36; Globulin 3.6 g/dL (2.4-3.5); Glucose 70 mg/dL (80-115); Potassium 3.8 mmol/L (3.5-5.1); Sodium 144 mmol/L (136-145)
[2022-04-16] MEDS: OLANZapine 2.5 MG TAB PO SCH (09:38)
[2022-04-16] MEDS: Folic Acid 1 MG TAB PO SCH (09:38)
[2022-04-16] MEDS: Multivit, Therapeutic 1 TAB PO SCH (09:38)
[2022-04-16] MEDS: Thiamine 100 MG TAB PO SCH (09:38)
[2022-04-16] MEDS: Famotidine 20 MG TAB PO SCH (21:15)
[2022-04-16] MEDS: pyridOXINE 50 MG (B6) TAB PO SCH (21:15)
[2022-04-16] MEDS: Saccharomyces boulardii 250 MG CAP PO SCH (21:15)
[2022-04-16] MEDS: Cyanocobalamin (Vitamin B-12) 1,000 MCG TAB PO SCH (21:15)
[2022-04-16] MEDS: Acetaminophen 325 MG TAB PO PRN (21:16)
[2022-04-16] MEDS: Senokot S 8.6-50 MG TAB PO SCH (21:16)
[2022-04-17] MEDS ORDERED: Sterile Water 10 ML VIAL FS PRN (02:30)
[2022-04-17] MEDS ORDERED: OLANZapine 10 MG VIAL IM SCH (02:30)
[2022-04-17] MEDS: Sodium Chloride 0.45% 1,000 ML IV SCH (02:44)
[2022-04-17] MEDS: Apixaban 5 MG TAB PO SCH ×2 (05:20→17:22)
[2022-04-17] MEDS: Ampicillin/Sulbactam 3 GM in Sodium Chloride 0.9% 100 ML IVPB SCH ×4 (05:20→23:18)
[2022-04-17 06:59] LABS: #Basophils 0.1 thou/uL (0.0-0.2); #Eosinphils 0.2 thou/uL (0.0-0.7); #Lymphocytes 1.5 thou/uL (1.20-3.40); #Monocytes 0.4 thou/uL (0.11-0.59); #Neutrophils 6.5 thou/uL (1.40-6.50); %Basophils 0.6 % (0.0-1.0); %Monocytes 4.8 % (0.0-10.0); %Neutrophils 75.6 % (42.0-75.0); Mean Corpuscular HGB CONC 31.6 g/dL (32.0-36.0); Mean Corpuscular Hemoglobin 34.6 pg (27.0-31.0); Mean Platelet Volume 7.7 fL (7.4-10.4); Platelet Count 272 thou/uL (130-400); RBC Distribution Width 12.7 % (11.5-14.5); White Blood Cell (WBC) Count 8.6 thou/uL (4.8-10.8)
[2022-04-17] MEDS: Folic Acid 1 MG TAB PO SCH (08:26)
[2022-04-17] MEDS: OLANZapine 2.5 MG TAB PO SCH (08:26)
[2022-04-17] MEDS: Thiamine 100 MG TAB PO SCH (08:26)
[2022-04-17] MEDS: Multivit, Therapeutic 1 TAB PO SCH (08:26)
[2022-04-17 09:30] LABS: Hemoglobin 9.2 g/dL (14.0-18.0); Platelet Count 250 thou/uL (130-400)
[2022-04-17 09:42] LABS: ALT (SGPT) 45 U/L (8-55); AST (SGOT) 38 U/L (5-34); Albumin 2.4 g/dL (3.4-4.8); Alkaline Phosphatase 147 U/L (40-110); Anion Gap 20 mmol/L (10-20); BUN (Urea Nitrogen) 24 mg/dL (8.4-25.7); Bilirubin, Total 1.3 mg/dL (0.2-1.2); Calc. Creatinine Clearance 36 mL/min (70-130); Calcium 8.4 mg/dL (7.8-10.44); Carbon Dioxide 18 mmol/L (23-31); Chloride 110 mmol/L (98-107); Estimated GFR 41; Globulin 3.3 g/dL (2.4-3.5); Potassium 3.8 mmol/L (3.5-5.1); Protein, Total 5.7 g/dL (5.8-8.1); Sodium 144 mmol/L (136-145)
[2022-04-17 09:46] LABS: Glucose 50 mg/dL (80-115)
[2022-04-17] MEDS ORDERED: Dextrose 50% Abboject 50 ML SYRINGE ONE (10:00)
[2022-04-17] MEDS: Dextrose 5 %-0.45 % NaCl 1,000 ML IV SCH ×2 (10:03→23:22)
[2022-04-17] MEDS: pyridOXINE 50 MG (B6) TAB PO SCH (20:54)
[2022-04-17] MEDS: Saccharomyces boulardii 250 MG CAP PO SCH (20:54)
[2022-04-17] MEDS: Famotidine 20 MG TAB PO SCH (20:54)
[2022-04-17] MEDS: Cyanocobalamin (Vitamin B-12) 1,000 MCG TAB PO SCH (20:54)
[2022-04-17] MEDS: Senokot S 8.6-50 MG TAB PO SCH (20:54)
[2022-04-18] MEDS: Apixaban 5 MG TAB PO SCH ×2 (05:22→17:19)
[2022-04-18] MEDS: Ampicillin/Sulbactam 3 GM in Sodium Chloride 0.9% 100 ML IVPB SCH ×4 (05:22→23:26)
[2022-04-18] MEDS: Thiamine 100 MG TAB PO SCH (08:25)
[2022-04-18] MEDS: OLANZapine 2.5 MG TAB PO SCH (08:25)
[2022-04-18] MEDS: Folic Acid 1 MG TAB PO SCH (08:25)
[2022-04-18] MEDS: Multivit, Therapeutic 1 TAB PO SCH (08:25)
[2022-04-18 08:48] LABS: #Eosinphils 0.1 thou/uL (0.0-0.7); #Lymphocytes 1.3 thou/uL (1.20-3.40); #Monocytes 0.5 thou/uL (0.11-0.59); #Neutrophils 4.2 thou/uL (1.40-6.50); %Basophils 0.1 % (0.0-1.0); %Eosinophils 1.9 % (0.0-10.0); %Lymphocytes 21.9 % (21.0-51.0); %Monocytes 7.7 % (0.0-10.0); %Neutrophils 68.4 % (42.0-75.0); Hemoglobin 8.6 g/dL (14.0-18.0); Mean Corpuscular HGB CONC 32.1 g/dL (32.0-36.0); Mean Corpuscular Hemoglobin 34.7 pg (27.0-31.0); Mean Platelet Volume 7.2 fL (7.4-10.4); Platelet Count 265 thou/uL (130-400); RBC Distribution Width 12.6 % (11.5-14.5); Red Blood Cell (RBC) Count 2.47 mill/uL (4.70-6.10); White Blood Cell (WBC) Count 6.1 thou/uL (4.8-10.8)
[2022-04-18 09:07] LABS: Anion Gap 15 mmol/L (10-20); BUN (Urea Nitrogen) 16 mg/dL (8.4-25.7); Calc. Creatinine Clearance 37 mL/min (70-130); Calcium 8.1 mg/dL (7.8-10.44); Carbon Dioxide 21 mmol/L (23-31); Chloride 113 mmol/L (98-107); Estimated GFR 42; Glucose 99 mg/dL (80-115); Magnesium 1.6 mg/dL (1.6-2.6); Potassium 3.3 mmol/L (3.5-5.1); Sodium 146 mmol/L (136-145)
[2022-04-18] MEDS ORDERED: Potassium Chloride 20 MEQ TAB PO SCH (10:00)
[2022-04-18 10:01] LABS: Albumin 2.4 g/dL (3.4-4.8)
[2022-04-18 10:02] LABS: Calcium 8.4 mg/dL (7.8-10.44); Chloride 113 mmol/L (98-107); Potassium 3.3 mmol/L (3.5-5.1); Sodium 146 mmol/L (136-145)
[2022-04-18 10:03] LABS: Globulin 3.6 g/dL (2.4-3.5); Glucose 98 mg/dL (80-115)
[2022-04-18 10:05] LABS: Anion Gap 14 mmol/L (10-20); Bilirubin, Total 0.9 mg/dL (0.2-1.2); Carbon Dioxide 22 mmol/L (23-31)
[2022-04-18 10:06] LABS: Alkaline Phosphatase 148 U/L (40-110); Calc. Creatinine Clearance 35 mL/min (70-130); Estimated GFR 40
[2022-04-18 10:07] LABS: BUN (Urea Nitrogen) 17 mg/dL (8.4-25.7)
[2022-04-18 10:08] LABS: AST (SGOT) 44 U/L (5-34)
[2022-04-18 10:09] LABS: ALT (SGPT) 43 U/L (8-55)
[2022-04-18] MEDS: Dextrose 5% in Water 1,000 ML IV SCH ×2 (11:06→23:25)
[2022-04-18] MEDS: Saccharomyces boulardii 250 MG CAP PO SCH (20:31)
[2022-04-18] MEDS: Famotidine 20 MG TAB PO SCH (20:31)
[2022-04-18] MEDS: Senokot S 8.6-50 MG TAB PO SCH (20:31)
[2022-04-18] MEDS: Cyanocobalamin (Vitamin B-12) 1,000 MCG TAB PO SCH (20:32)
[2022-04-18] MEDS: pyridOXINE 50 MG (B6) TAB PO SCH (20:32)
[2022-04-19] MEDS: Ampicillin/Sulbactam 3 GM in Sodium Chloride 0.9% 100 ML IVPB SCH ×4 (05:31→23:27)
[2022-04-19] MEDS: Apixaban 5 MG TAB PO SCH ×2 (05:35→16:57)
[2022-04-19 06:53] LABS: #Eosinphils 0.1 thou/uL (0.0-0.7); #Lymphocytes 1.5 thou/uL (1.20-3.40); #Monocytes 0.5 thou/uL (0.11-0.59); %Basophils 0.4 % (0.0-1.0); %Eosinophils 1.8 % (0.0-10.0); %Lymphocytes 24.8 % (21.0-51.0); %Monocytes 7.7 % (0.0-10.0); %Neutrophils 65.3 % (42.0-75.0); Hemoglobin 9.6 g/dL (14.0-18.0); Mean Corpuscular Hemoglobin 33.8 pg (27.0-31.0); Mean Platelet Volume 7.8 fL (7.4-10.4); Platelet Count 294 thou/uL (130-400); RBC Distribution Width 13.1 % (11.5-14.5); Red Blood Cell (RBC) Count 2.84 mill/uL (4.70-6.10); White Blood Cell (WBC) Count 6.2 thou/uL (4.8-10.8)
[2022-04-19] MEDS: Multivit, Therapeutic 1 TAB PO SCH (08:17)
[2022-04-19] MEDS: OLANZapine 2.5 MG TAB PO SCH (08:17)
[2022-04-19] MEDS: Folic Acid 1 MG TAB PO SCH (08:17)
[2022-04-19] MEDS: Thiamine 100 MG TAB PO SCH (08:17)
[2022-04-19 08:57] LABS: ALT (SGPT) 44 U/L (8-55); AST (SGOT) 45 U/L (5-34); Albumin 2.8 g/dL (3.4-4.8); Alkaline Phosphatase 141 U/L (40-110); Anion Gap 19 mmol/L (10-20); BUN (Urea Nitrogen) 11 mg/dL (8.4-25.7); Bilirubin, Total 1.4 mg/dL (0.2-1.2); Calc. Creatinine Clearance 36 mL/min (70-130); Calcium 8.7 mg/dL (7.8-10.44); Carbon Dioxide 19 mmol/L (23-31); Chloride 111 mmol/L (98-107); Estimated GFR 41; Globulin 4.1 g/dL (2.4-3.5); Glucose 71 mg/dL (80-115); Potassium 3.8 mmol/L (3.5-5.1); Protein, Total 6.9 g/dL (5.8-8.1); Sodium 145 mmol/L (136-145)
[2022-04-19] MEDS ORDERED: Citalopram 20 MG TAB PO SCH (12:45)
[2022-04-19] MEDS: Dextrose 5% in Water 1,000 ML IV SCH (13:48)
[2022-04-19] MEDS: Senokot S 8.6-50 MG TAB PO SCH (21:06)
[2022-04-19] MEDS: pyridOXINE 50 MG (B6) TAB PO SCH (21:06)
[2022-04-19] MEDS: Famotidine 20 MG TAB PO SCH (21:06)
[2022-04-19] MEDS: Cyanocobalamin (Vitamin B-12) 1,000 MCG TAB PO SCH (21:06)
[2022-04-19] MEDS: Saccharomyces boulardii 250 MG CAP PO SCH (21:06)
[2022-04-20] MEDS: Dextrose 5% in Water 1,000 ML IV SCH (02:20)
[2022-04-20] MEDS: Ampicillin/Sulbactam 3 GM in Sodium Chloride 0.9% 100 ML IVPB SCH ×2 (05:42→12:37)
[2022-04-20] MEDS: Apixaban 5 MG TAB PO SCH ×2 (05:42→18:05)
[2022-04-20 07:25] LABS: Anion Gap 16 mmol/L (10-20); BUN (Urea Nitrogen) 10 mg/dL (8.4-25.7); Calc. Creatinine Clearance 37 mL/min (70-130); Calcium 8.7 mg/dL (7.8-10.44); Carbon Dioxide 24 mmol/L (23-31); Chloride 107 mmol/L (98-107); Estimated GFR 43; Glucose 91 mg/dL (80-115); Magnesium 1.6 mg/dL (1.6-2.6); Potassium 3.6 mmol/L (3.5-5.1); Sodium 143 mmol/L (136-145)
[2022-04-20] MEDS: Folic Acid 1 MG TAB PO SCH (09:28)
[2022-04-20] MEDS: Citalopram 20 MG TAB PO SCH (09:28)
[2022-04-20] MEDS: Multivit, Therapeutic 1 TAB PO SCH (09:28)
[2022-04-20] MEDS: Thiamine 100 MG TAB PO SCH (09:28)
[2022-04-20 09:37] LABS: Hemoglobin 9.8 g/dL (14.0-18.0); Platelet Count 280 thou/uL (130-400)
[2022-04-20] MEDS: Famotidine 20 MG TAB PO SCH (20:23)
[2022-04-20] MEDS: Senokot S 8.6-50 MG TAB PO SCH (20:23)
[2022-04-20] MEDS: pyridOXINE 50 MG (B6) TAB PO SCH (20:23)
[2022-04-20] MEDS: Cyanocobalamin (Vitamin B-12) 1,000 MCG TAB PO SCH (20:24)
[2022-04-20] MEDS: Saccharomyces boulardii 250 MG CAP PO SCH (20:24)
[2022-04-21] MEDS: Apixaban 5 MG TAB PO SCH ×2 (06:01→17:11)
[2022-04-21 08:48] LABS: Anion Gap 15 mmol/L (10-20); BUN (Urea Nitrogen) 10 mg/dL (8.4-25.7); Calc. Creatinine Clearance 33 mL/min (70-130); Calcium 8.6 mg/dL (7.8-10.44); Carbon Dioxide 26 mmol/L (23-31); Chloride 108 mmol/L (98-107); Estimated GFR 37; Glucose 88 mg/dL (80-115); Potassium 3.7 mmol/L (3.5-5.1); Sodium 145 mmol/L (136-145)
[2022-04-21] MEDS: Citalopram 20 MG TAB PO SCH (08:56)
[2022-04-21] MEDS: Folic Acid 1 MG TAB PO SCH (08:56)
[2022-04-21] MEDS: Thiamine 100 MG TAB PO SCH (08:56)
[2022-04-21] MEDS: Multivit, Therapeutic 1 TAB PO SCH (08:56)
[2022-04-21] MEDS: Senokot S 8.6-50 MG TAB PO SCH (21:44)
[2022-04-21] MEDS: Famotidine 20 MG TAB PO SCH (21:44)
[2022-04-21] MEDS: pyridOXINE 50 MG (B6) TAB PO SCH (21:44)
[2022-04-21] MEDS: Saccharomyces boulardii 250 MG CAP PO SCH (21:44)
[2022-04-21] MEDS: Cyanocobalamin (Vitamin B-12) 1,000 MCG TAB PO SCH (21:44)
[2022-04-22] MEDS: Apixaban 5 MG TAB PO SCH ×2 (06:26→17:36)
[2022-04-22 06:53] LABS: #Eosinphils 0.1 thou/uL (0.0-0.7); #Lymphocytes 1.6 thou/uL (1.20-3.40); #Monocytes 0.5 thou/uL (0.11-0.59); #Neutrophils 3.2 thou/uL (1.40-6.50); %Basophils 0.4 % (0.0-1.0); %Lymphocytes 29.8 % (21.0-51.0); %Monocytes 8.5 % (0.0-10.0); %Neutrophils 59.3 % (42.0-75.0); Hemoglobin 8.8 g/dL (14.0-18.0); Mean Corpuscular HGB CONC 31.9 g/dL (32.0-36.0); Mean Corpuscular Hemoglobin 34.6 pg (27.0-31.0); Mean Platelet Volume 7.8 fL (7.4-10.4); Platelet Count 302 thou/uL (130-400); Red Blood Cell (RBC) Count 2.56 mill/uL (4.70-6.10); White Blood Cell (WBC) Count 5.4 thou/uL (4.8-10.8)
[2022-04-22 07:20] LABS: Anion Gap 16 mmol/L (10-20); BUN (Urea Nitrogen) 10 mg/dL (8.4-25.7); Calc. Creatinine Clearance 32 mL/min (70-130); Calcium 8.4 mg/dL (7.8-10.44); Carbon Dioxide 24 mmol/L (23-31); Chloride 107 mmol/L (98-107); Estimated GFR 35; Glucose 74 mg/dL (80-115); Potassium 3.9 mmol/L (3.5-5.1); Sodium 143 mmol/L (136-145)
[2022-04-22] MEDS: Citalopram 20 MG TAB PO SCH (08:29)
[2022-04-22] MEDS: Multivit, Therapeutic 1 TAB PO SCH (08:29)
[2022-04-22] MEDS: Thiamine 100 MG TAB PO SCH (08:29)
[2022-04-22] MEDS: Folic Acid 1 MG TAB PO SCH (08:30)
[2022-04-22] MEDS: Saccharomyces boulardii 250 MG CAP PO SCH (22:03)
[2022-04-22] MEDS: Cyanocobalamin (Vitamin B-12) 1,000 MCG TAB PO SCH (22:03)
[2022-04-22] MEDS: pyridOXINE 50 MG (B6) TAB PO SCH (22:04)
[2022-04-22] MEDS: Famotidine 20 MG TAB PO SCH (22:04)
[2022-04-22] MEDS: Senokot S 8.6-50 MG TAB PO SCH (22:04)
[2022-04-23] MEDS: Apixaban 5 MG TAB PO SCH ×2 (06:12→17:59)
[2022-04-23] MEDS: Thiamine 100 MG TAB PO SCH (09:21)
[2022-04-23] MEDS: Folic Acid 1 MG TAB PO SCH (09:22)
[2022-04-23] MEDS: Multivit, Therapeutic 1 TAB PO SCH (09:22)
[2022-04-23] MEDS: Cyanocobalamin (Vitamin B-12) 1,000 MCG TAB PO SCH (23:04)
[2022-04-23] MEDS: Senokot S 8.6-50 MG TAB PO SCH (23:04)
[2022-04-23] MEDS: Famotidine 20 MG TAB PO SCH (23:04)
[2022-04-23] MEDS: pyridOXINE 50 MG (B6) TAB PO SCH (23:04)
[2022-04-23] MEDS: Saccharomyces boulardii 250 MG CAP PO SCH (23:04)
[2022-04-24] MEDS: Apixaban 5 MG TAB PO SCH ×2 (05:45→18:29)
[2022-04-24] MEDS: Folic Acid 1 MG TAB PO SCH (10:21)
[2022-04-24] MEDS: Thiamine 100 MG TAB PO SCH (10:21)
[2022-04-24] MEDS: Citalopram 20 MG TAB PO SCH (10:21)
[2022-04-24] MEDS: Multivit, Therapeutic 1 TAB PO SCH (10:21)
[2022-04-24 11:24] LABS: Anion Gap 13 mmol/L (10-20); BUN (Urea Nitrogen) 9 mg/dL (8.4-25.7); Calc. Creatinine Clearance 31 mL/min (70-130); Calcium 8.7 mg/dL (7.8-10.44); Carbon Dioxide 27 mmol/L (23-31); Chloride 105 mmol/L (98-107); Estimated GFR 35; Glucose 87 mg/dL (80-115); Potassium 3.7 mmol/L (3.5-5.1); Sodium 141 mmol/L (136-145)
[2022-04-24] MEDS ORDERED: Polyethylene Glycol 3350 17 GM Packet PO PRN (18:35)
[2022-04-24] MEDS: Famotidine 20 MG TAB PO SCH (20:11)
[2022-04-24] MEDS: pyridOXINE 50 MG (B6) TAB PO SCH (20:11)
[2022-04-24] MEDS: Cyanocobalamin (Vitamin B-12) 1,000 MCG TAB PO SCH (20:11)
[2022-04-24] MEDS: Saccharomyces boulardii 250 MG CAP PO SCH (20:11)
[2022-04-24] MEDS: Senokot S 8.6-50 MG TAB PO SCH (20:12)
[2022-04-25] MEDS: Apixaban 5 MG TAB PO SCH ×2 (05:36→17:56)
[2022-04-25] MEDS: Thiamine 100 MG TAB PO SCH (08:26)
[2022-04-25] MEDS: Folic Acid 1 MG TAB PO SCH (08:26)
[2022-04-25] MEDS: Polyethylene Glycol 3350 17 GM Packet PO SCH (08:26)
[2022-04-25] MEDS: Citalopram 20 MG TAB PO SCH (08:26)
[2022-04-25] MEDS: Multivit, Therapeutic 1 TAB PO SCH (08:26)
[2022-04-25] MEDS: Senokot S 8.6-50 MG TAB PO SCH (20:02)
[2022-04-25] MEDS: pyridOXINE 50 MG (B6) TAB PO SCH (20:03)
[2022-04-25] MEDS: Cyanocobalamin (Vitamin B-12) 1,000 MCG TAB PO SCH (20:03)
[2022-04-25] MEDS: Famotidine 20 MG TAB PO SCH (20:03)
[2022-04-25] MEDS: Saccharomyces boulardii 250 MG CAP PO SCH (20:03)
[2022-04-26] MEDS: Apixaban 5 MG TAB PO SCH ×2 (05:04→17:54)
[2022-04-26] MEDS: Folic Acid 1 MG TAB PO SCH (08:20)
[2022-04-26] MEDS: Polyethylene Glycol 3350 17 GM Packet PO SCH (08:20)
[2022-04-26] MEDS: Thiamine 100 MG TAB PO SCH (08:20)
[2022-04-26] MEDS: Citalopram 20 MG TAB PO SCH (08:20)
[2022-04-26] MEDS: Multivit, Therapeutic 1 TAB PO SCH (08:20)
[2022-04-26] MEDS: Acetaminophen 325 MG TAB PO PRN (10:39)
[2022-04-26] MEDS: pyridOXINE 50 MG (B6) TAB PO SCH (20:00)
[2022-04-26] MEDS: Cyanocobalamin (Vitamin B-12) 1,000 MCG TAB PO SCH (20:00)
[2022-04-26] MEDS: Famotidine 20 MG TAB PO SCH (20:01)
[2022-04-26] MEDS: Senokot S 8.6-50 MG TAB PO SCH (20:01)
[2022-04-26] MEDS: Saccharomyces boulardii 250 MG CAP PO SCH (20:01)
[2022-04-27] MEDS: Apixaban 5 MG TAB PO SCH ×2 (06:08→17:50)
[2022-04-27] MEDS: Thiamine 100 MG TAB PO SCH (09:20)
[2022-04-27] MEDS: Folic Acid 1 MG TAB PO SCH (09:20)
[2022-04-27] MEDS: Citalopram 20 MG TAB PO SCH (09:20)
[2022-04-27] MEDS: Multivit, Therapeutic 1 TAB PO SCH (09:20)
[2022-04-27] MEDS: Polyethylene Glycol 3350 17 GM Packet PO SCH (09:21)
[2022-04-27] MEDS: Senokot S 8.6-50 MG TAB PO SCH (21:30)
[2022-04-27] MEDS: Cyanocobalamin (Vitamin B-12) 1,000 MCG TAB PO SCH (21:30)
[2022-04-27] MEDS: pyridOXINE 50 MG (B6) TAB PO SCH (21:30)
[2022-04-27] MEDS: Famotidine 20 MG TAB PO SCH (21:30)
[2022-04-27] MEDS: Saccharomyces boulardii 250 MG CAP PO SCH (21:30)
[2022-04-28] MEDS: Apixaban 5 MG TAB PO SCH ×2 (05:55→18:02)
[2022-04-28] MEDS: Multivit, Therapeutic 1 TAB PO SCH (08:55)
[2022-04-28] MEDS: Folic Acid 1 MG TAB PO SCH (08:55)
[2022-04-28] MEDS: Thiamine 100 MG TAB PO SCH (08:55)
[2022-04-28] MEDS: Polyethylene Glycol 3350 17 GM Packet PO SCH (08:56)
[2022-04-28] MEDS: Citalopram 20 MG TAB PO SCH (08:56)
[2022-04-28] MEDS: Cyanocobalamin (Vitamin B-12) 1,000 MCG TAB PO SCH (21:53)
[2022-04-28] MEDS: Senokot S 8.6-50 MG TAB PO SCH (21:53)
[2022-04-28] MEDS: pyridOXINE 50 MG (B6) TAB PO SCH (21:53)
[2022-04-28] MEDS: Famotidine 20 MG TAB PO SCH (21:53)
[2022-04-28] MEDS: Saccharomyces boulardii 250 MG CAP PO SCH (21:53)
[2022-04-29] MEDS: Apixaban 5 MG TAB PO SCH ×2 (05:32→17:12)
[2022-04-29] MEDS: Multivit, Therapeutic 1 TAB PO SCH (08:52)
[2022-04-29] MEDS: Polyethylene Glycol 3350 17 GM Packet PO SCH (08:52)
[2022-04-29] MEDS: Citalopram 20 MG TAB PO SCH (08:53)
[2022-04-29] MEDS: Folic Acid 1 MG TAB PO SCH (08:53)
[2022-04-29] MEDS: Thiamine 100 MG TAB PO SCH (08:53)
[2022-04-29] MEDS: Famotidine 20 MG TAB PO SCH (20:38)
[2022-04-29] MEDS: Cyanocobalamin (Vitamin B-12) 1,000 MCG TAB PO SCH (20:38)
[2022-04-29] MEDS: Senokot S 8.6-50 MG TAB PO SCH (20:38)
[2022-04-29] MEDS: pyridOXINE 50 MG (B6) TAB PO SCH (20:38)
[2022-04-29] MEDS: Saccharomyces boulardii 250 MG CAP PO SCH (20:38)
[2022-04-30] MEDS: Apixaban 5 MG TAB PO SCH ×2 (05:06→17:28)
[2022-04-30] MEDS: Multivit, Therapeutic 1 TAB PO SCH (08:49)
[2022-04-30] MEDS: Thiamine 100 MG TAB PO SCH (08:49)
[2022-04-30] MEDS: Folic Acid 1 MG TAB PO SCH (08:49)
[2022-04-30] MEDS: Citalopram 20 MG TAB PO SCH (08:49)
[2022-04-30] MEDS: Polyethylene Glycol 3350 17 GM Packet PO SCH (08:56)
[2022-04-30] MEDS: Senokot S 8.6-50 MG TAB PO SCH (21:08)
[2022-04-30] MEDS: Famotidine 20 MG TAB PO SCH (21:09)
[2022-04-30] MEDS: Cyanocobalamin (Vitamin B-12) 1,000 MCG TAB PO SCH (21:09)
[2022-04-30] MEDS: pyridOXINE 50 MG (B6) TAB PO SCH (21:09)
[2022-04-30] MEDS: Saccharomyces boulardii 250 MG CAP PO SCH (21:09)
[2022-05-01] MEDS: Apixaban 5 MG TAB PO SCH ×2 (05:08→17:42)
[2022-05-01 06:32] LABS: Hemoglobin 8.5 g/dL (14.0-18.0); Platelet Count 407 thou/uL (130-400)
[2022-05-01] MEDS: Citalopram 20 MG TAB PO SCH (08:30)
[2022-05-01] MEDS: Folic Acid 1 MG TAB PO SCH (08:31)
[2022-05-01] MEDS: Multivit, Therapeutic 1 TAB PO SCH (08:31)
[2022-05-01] MEDS: Thiamine 100 MG TAB PO SCH (08:31)
[2022-05-01] MEDS: Polyethylene Glycol 3350 17 GM Packet PO SCH (08:31)
[2022-05-01] MEDS: Senokot S 8.6-50 MG TAB PO SCH (20:36)
[2022-05-01] MEDS: Cyanocobalamin (Vitamin B-12) 1,000 MCG TAB PO SCH (20:37)
[2022-05-01] MEDS: Saccharomyces boulardii 250 MG CAP PO SCH (20:37)
[2022-05-01] MEDS: Famotidine 20 MG TAB PO SCH (20:37)
[2022-05-01] MEDS: pyridOXINE 50 MG (B6) TAB PO SCH (20:37)
[2022-05-02] MEDS: Apixaban 5 MG TAB PO SCH ×2 (05:16→18:04)
[2022-05-02] MEDS: Multivit, Therapeutic 1 TAB PO SCH (09:09)
[2022-05-02] MEDS: Polyethylene Glycol 3350 17 GM Packet PO SCH (09:10)
[2022-05-02] MEDS: Thiamine 100 MG TAB PO SCH (09:10)
[2022-05-02] MEDS: Folic Acid 1 MG TAB PO SCH (09:10)
[2022-05-02] MEDS: Citalopram 20 MG TAB PO SCH (09:10)
[2022-05-02] MEDS: pyridOXINE 50 MG (B6) TAB PO SCH (21:15)
[2022-05-02] MEDS: Famotidine 20 MG TAB PO SCH (21:15)
[2022-05-02] MEDS: Saccharomyces boulardii 250 MG CAP PO SCH (21:15)
[2022-05-02] MEDS: Senokot S 8.6-50 MG TAB PO SCH (21:15)
[2022-05-02] MEDS: Cyanocobalamin (Vitamin B-12) 1,000 MCG TAB PO SCH (21:15)
[2022-05-03] MEDS: Acetaminophen 325 MG TAB PO PRN ×2 (05:34→11:27)
[2022-05-03] MEDS: Apixaban 5 MG TAB PO SCH (05:35)
[2022-05-03 07:56] VITALS: BP 94/58; TEMP 98.4
[2022-05-03] MEDS: Folic Acid 1 MG TAB PO SCH (09:28)
[2022-05-03] MEDS: Citalopram 20 MG TAB PO SCH (09:28)
[2022-05-03] MEDS: Thiamine 100 MG TAB PO SCH (09:28)
[2022-05-03] MEDS: Multivit, Therapeutic 1 TAB PO SCH (09:29)
[2022-05-03] MEDS: Polyethylene Glycol 3350 17 GM Packet PO SCH (09:59)
[2022-05-03 10:13] VITALS: BMI 19.6
== END 2022-05-03 11:56 | DRG 871 ==
LOC: ERS 14:15 → CCU 17:56 → IMCU/EMU 04-05 13:20 → T4-A 04-10 17:44
PROVIDERS: ADMIT Internal Medicine; ATTEND Internal Medicine
DX: A41.9 Sepsis, unspecified organism (principal); G93.41 Metabolic encephalopathy; I21.A1 Myocardial infarction type 2; J69.0 Pneumonitis due to inhalation of food and vomit; I42.9 Cardiomyopathy, unspecified; I50.22 Chronic systolic (congestive) heart failure; E87.0 Hyperosmolality and hypernatremia; N17.9 Acute kidney failure, unspecified; I13.0 Hypertensive heart and chronic kidney disease with heart failure and stage 1 through stage 4 chronic kidney disease, or unspecified chronic kidney disease; E87.2 Acidosis; N39.0 Urinary tract infection, site not specified; N18.4 Chronic kidney disease, stage 4 (severe); E44.0 Moderate protein-calorie malnutrition; F03.91 Unspecified dementia, unspecified severity, with behavioral disturbance; Z68.1 Body mass index [BMI] 19.9 or less, adult; Z20.822 Contact with and (suspected) exposure to COVID-19; Z66 Do not resuscitate; Z51.5 Encounter for palliative care; I25.10 Atherosclerotic heart disease of native coronary artery without angina pectoris; E87.5 Hyperkalemia; E87.8 Other disorders of electrolyte and fluid balance, not elsewhere classified; F14.10 Cocaine abuse, uncomplicated; D69.6 Thrombocytopenia, unspecified; E78.00 Pure hypercholesterolemia, unspecified; D63.1 Anemia in chronic kidney disease; E86.0 Dehydration; R94.31 Abnormal electrocardiogram [ECG] [EKG]; E16.2 Hypoglycemia, unspecified; Z95.5 Presence of coronary angioplasty implant and graft; I25.2 Old myocardial infarction; Z86.718 Personal history of other venous thrombosis and embolism; Z90.49 Acquired absence of other specified parts of digestive tract; Z98.890 Other specified postprocedural states; Z79.899 Other long term (current) drug therapy; Z91.14 Patient's other noncompliance with medication regimen; Z78.1 Physical restraint status
CPT/HCPCS: 36415; 36416; 70450; 71045; 76770; 80048; 80053; 80202; 80306; 81003; 81015; 82140; 82550; 82553; 82565; 83605; 83735; 83880; 84100; 84145; 84484; 85014; 85018; 85025; 85049; 85610; 85730; 87040; 87077; 87086; 87149; 87811; 93005; 93010; 93306; 94760; 96374; 96375; J0295; J0696; J1630; J1644; J2270; J2358; J2405; J3370; J3411; J3486; J3490; J7042; J7050; J7070; J7999; S0028; U0002; U0003; U0005